=== PATIENT | male | born 2000 | race Caucasian/White ===

== ENCOUNTER 2020-10-05 21:15 | Emergency (ER) | payer MEDICAID ==
[~2020-10-05] VITALS: Ht 165.1 cm; Wt 47.7 kg
[2020-10-05 22:27] LABS: COVID AG,FIA SOURCE NASOPHARYNGEAL
[2020-10-05 23:32] VITALS: BP 121/63
[2020-10-06] MEDS ORDERED: SERT100T12 PO (00:07)
[2020-10-06] MEDS ORDERED: BUSP10TA23 PO (00:09)
[2020-10-06] MEDS ORDERED: GABA-1201 PO (00:10)
[2020-10-06] MEDS ORDERED: ATOM40CA9 PO (00:11)
== END 2020-10-06 00:43 | disposition home or self-care (01) ==
LOC: EMS 21:17
DX: B34.9 Viral infection, unspecified (principal); Z20.828 Contact with and (suspected) exposure to other viral communicable diseases
CPT/HCPCS: 87426